=== PATIENT | male | born 1995 | race Caucasian/White ===

== ENCOUNTER 2021-03-11 15:56 | Emergency (ER) | payer OTHER ==
[2021-03-11 16:52] LABS: Absolute Lymphocytes (CBC) 2.2 K/uL (0.7-4.9); Basophils % 0.5 % (0-1.3); Hematocrit 44.1 % (39.6-49.0); RBC Red Blood Cell Count 4.77 M/uL (4.33-5.43)
[2021-03-11] MEDS ORDERED: NA CHLORIDE 0.9% 1,000 ML ONE (16:58)
[2021-03-11] MEDS ORDERED: MORPHINE 4 MG/ML SYR ONE (16:58)
[2021-03-11] MEDS ORDERED: ONDANSETRON 4 MG/2 ML VIAL ONE (16:58)
[2021-03-11 17:05] LABS: ALT/SGPT 18 U/L (12-78); AST/SGOT 17 U/L (15-37); Albumin 4.7 g/dL (3.4-5.0); Alkaline Phosphatase 63 U/L (45-117); BUN Blood Urea Nitrogen 10 mg/dL (7-18); Bicarbonate 29 mmol/L (21-32); Bilirubin Direct 0.2 mg/dL (0-0.2); Bilirubin Total 0.8 mg/dL (0.2-1.0); Glucose Level 86 mg/dL (74-106); Magnesium 1.9 mg/dL (1.8-2.4); NT PRO-BNP 14 pg/mL (<125); Potassium 3.8 mmol/L (3.5-5.1); Protein, Total 7.6 g/dL (6.4-8.2); Sodium Level 138 mmol/L (136-145); Troponin (Emerg Dept Use Only) < 0.02 ng/mL (0.0-0.045)
[2021-03-11 17:35] LABS: Protime INR 1.15
--- NOTE | 2021-03-11 17:46 | RAD REPORT ---
EXAM DESCRIPTION: Neelima Single View03/11/2021 5:35 pm CLINICAL HISTORY: Chest pain COMPARISON: none FINDINGS: The lungs appear clear of acute infiltrate. The heart is normal size IMPRESSION: No acute abnormalities displayed
[2021-03-11] MEDS ORDERED: KETOROLAC 30 MG/ML INJ ONE (19:15)
--- NOTE | 2021-03-11 19:39 | ER ---
Nurse's Notes [facility] Name: Kadeem Bragg Age: 25 yrs Sex: Male : 1995 Arrival Date: 03/11/2021 Time: 16:00 Bed 23 Private MD: Diagnosis: Chest pain, unspecified Presentation: 03/11 16:14 Chief complaint: Patient states: L chest sharp pain for 1 day. Pain increases with ll1 certain movements of L arm and deep breathing. No cough or fever. Coronavirus screen: Client denies travel out of the [place] in the last 14 days. At this time, the client does not indicate any symptoms associated with coronavirus-19. Ebola Screen: Patient denies exposure to infectious person. Patient denies travel to an Ebola-affected area in the 21 days before illness onset. Initial Sepsis Screen: Does the patient meet any 2 criteria? HR > 90 bpm. No. Patient's initial sepsis screen is negative. Does the patient have a suspected source of infection? No. Patient's initial sepsis screen is negative. Risk Assessment: Do you want to hurt yourself or someone else? Patient reports no desire to harm self or others. Onset of symptoms was March 11, 2021. 16:14 Method Of Arrival: Ambulatory ll1 16:14 Acuity: SINTIA 2 ll1 Historical: - Allergies: 16:16 No Known Allergies; ll1 - PMHx: 16:16 None; ll1 - PSHx: 16:16 lasik eye; ll1 - Immunization history:: Flu vaccine is not up to date. Client reports having NOT received the Covid vaccine. - Social history:: Smoking status: Reported history of juuling and/or vaping. Patient denies any tobacco usage or history of. Screenin:52 Abuse screen: Denies threats or abuse. Nutritional screening: No deficits noted. vg1 Tuberculosis screening: No symptoms or risk factors identified. Fall Risk No fall in past 12 months (0 pts). No secondary diagnosis (0 pts). IV access (20 points). Ambulatory Aid- None/Bed Rest/Nurse Assist (0 pts). Gait- Normal/Bed Rest/Wheelchair (0 pts) Mental Status- Oriented to own ability (0 pts). Total Hugo Fall Scale indicates No Risk (0-24 pts). Assessment: 16:50 General: Appears in no apparent distress. comfortable, Behavior is calm, cooperative. vg1 Pain: Complains of pain in chest Pain currently is 5 out of 10 on a pain scale. at worst was 8 out of 10 on a pain scale. Pain began this morning Alleviated by rest, Aggravated by increased activity. Neuro: Level of Consciousness is awake, alert, obeys commands, Oriented to person, place, time, situation. Cardiovascular: Patient's skin is warm and dry. Respiratory: Reports pain with respiration Airway is patent Respiratory effort is even, unlabored, Breath sounds are clear bilaterally. GI: Patient currently denies diarrhea, nausea, vomiting. : No signs and/or symptoms were reported regarding the genitourinary system. EENT: No signs and/or symptoms were reported regarding the EENT system. Derm: Skin is intact, is healthy with good turgor. Musculoskeletal: Circulation, motion, and sensation intact. 18:14 Reassessment: Patient appears in no apparent distress at this time. No changes from vg1 previously documented assessment. Patient and/or family updated on plan of care and expected duration. Pain level reassessed. Patient is alert, oriented x 3, equal unlabored respirations, skin warm/dry/pink. Pt states left sided chest pain is currently 3/10, stated 'hurts more when I take a deep breath or move my left arm up and down the pain is about 7/10'. Provider notified. 19:13 Reassessment: Patient appears in no apparent distress at this time. Patient and/or vg1 family updated on plan of care and expected duration. Pain level reassessed. Patient is alert, oriented x 3, equal unlabored respirations, skin warm/dry/pink. Vital Signs: 16:14 BP 142 / 80; Pulse 104; Resp 16; Temp 97.6; Pulse Ox 99% ; Weight 70.31 kg; Height 6 ll1 ft. 2 in. (187.96 cm); Pain 5/10; 16:52 BP 131 / 89; Pulse 88; Resp 16; Pulse Ox 100% on R/A; vg1 18:16 BP 118 / 70; Pulse 63; Resp 14; Pulse Ox 100% on R/A; vg1 19:00 BP 107 / 68; Pulse 68; Resp 20; Pulse Ox 100% on R/A; vg1 16:14 Body Mass Index 19.90 (70.31 kg, 187.96 cm) ll1 ED Course: 16:00 Patient arrived in ED. mr 16:14 Arm band placed on. ll1 16:16 Triage completed. ll1 16:23 Patient placed in an exam room, on a stretcher. EKG completed in triage. Results shown ll1 to MD. 16:25 Maurice Robles NP is PHCP. pm1 16:25 Jignesh Park MD is Attending Physician. pm1 16:32 Inserted saline lock: 20 gauge in left antecubital area, using aseptic technique. Blood mt collected. 16:38 Lesli Johnston, RN is Primary Nurse. vg1 16:52 Patient has correct armband on for positive identification. Bed in low position. Call vg1 light in reach. Side rails up X 1. Adult w/ patient. 17:43 XRAY Chest (1 view) In Process Unspecified. EDMS 19:59 No provider procedures requiring assistance completed. IV discontinued, intact, vg1 bleeding controlled, No redness/swelling at site. Pressure dressing applied. Administered Medications: 16:56 Drug: NS 0.9% 1000 ml Route: IV; Rate: 1000 ml; Site: left forearm; vg1 18:53 Follow up: IV Status: Completed infusion; IV Intake: 1000ml vg1 16:56 Drug: morphine 4 mg Route: IVP; Site: left forearm; vg1 18:53 Follow up: Response: No adverse reaction; Pain is unchanged, physician notified vg1 16:56 Drug: Zofran (Ondansetron) 4 mg Route: IVP; Site: left forearm; vg1 18:53 Follow up: Response: No adverse reaction vg1 19:12 Drug: TORadol (ketorolac) 30 mg Route: IVP; Site: left antecubital; vg1 20:00 Follow up: Response: No adverse reaction vg1 Intake: 18:53 IV: 1000ml; Total: 1000ml. vg1 Outcome: 19:39 Discharge ordered by . pm1 19:59 Discharged to home ambulatory. vg1 19:59 Condition: stable 19:59 Discharge instructions given to patient, Instructed on discharge instructions, follow up and referral plans. medication usage, Demonstrated understanding of instructions, follow-up care, medications, Prescriptions given X 2. 19:59 Patient left the ED. vg1 Signatures: Dispatcher [facility] Rehan Anna mr TravisMaurice, DIP TUBE ASSEMBLER MACHINE DIP TUBE ASSEMBLER MACHINE pm1 Dee Aldana mt, Victoria, RN RN vg1 Bulmaro Rodriguez RN RN ll1 Corrections: (The following items were deleted from the chart) 16:23 16:14 Acuity: SINTIA 3 ll1 ll1 16:56 16:55 NS 0.9% 1000 ml IV at 1000 ml in left wrist vg1 vg1
--- NOTE | 2021-03-11 19:40 | EDPHYS ---
Physician Documentation [facility] Name: Kadeem Bragg Age: 25 yrs Sex: Male : 1995 Arrival Date: 03/11/2021 Time: 16:00 Bed 23 Private MD: ED Physician Jignesh Park HPI: 03/11 16:39 This 25 yrs old Male presents to ER via Ambulatory with complaints of Chest pm1 pain radiates to shoulder pain. 16:39 The patient or guardian reports chest pain that is located primarily in the left pm1 breast. The pain radiates to the left arm. Associated signs and symptoms: The patient has no apparent associated signs or symptoms, Pertinent negatives: abdominal pain, cough, diaphoresis, dizziness, headache, nausea, palpitations, shortness of breath, syncope, vomiting. The chest pain is described as sharp. Duration: The patient or guardian reports a single episode, that is still ongoing, and worsening. Modifying factors: The symptoms are alleviated by nothing. the symptoms are aggravated by deep breath, palpation of area. Severity of pain: in the emergency department the pain is actually worse. The patient has not experienced similar symptoms in the past. The patient has not recently seen a physician. Onset chest pain at 0800 today. Historical: - Allergies: 16:16 No Known Allergies; ll1 - PMHx: 16:16 None; ll1 - PSHx: 16:16 lasik eye; ll1 - Immunization history:: Flu vaccine is not up to date. Client reports having NOT received the Covid vaccine. - Social history:: Smoking status: Reported history of juuling and/or vaping. Patient denies any tobacco usage or history of. ROS: 16:39 Constitutional: Negative for fever, chills, and weight loss. pm1 16:39 Respiratory: Negative for shortness of breath, cough, wheezing, and pleuritic chest pain, Abdomen/GI: Negative for abdominal pain, nausea, vomiting, diarrhea, and constipation, Back: Negative for injury and pain, MS/Extremity: Negative for injury and deformity, Skin: Negative for injury, rash, and discoloration, Neuro: Negative for headache, weakness, numbness, tingling, and seizure. 16:39 Cardiovascular: Positive for chest pain, Negative for edema, palpitations. Exam: 16:39 Constitutional: This is a well developed, well nourished patient who is awake, alert, pm1 and in no acute distress. Head/Face: Normocephalic, atraumatic. 16:39 Back: No spinal tenderness. No costovertebral tenderness. Full range of motion. Skin: Warm, dry with normal turgor. Normal color with no rashes, no lesions, and no evidence of cellulitis. MS/ Extremity: Pulses equal, no cyanosis. Neurovascular intact. Full, normal range of motion. 16:39 Chest/axilla: Inspection: normal, Palpation: tenderness, of the left breast, that totally reproduces the patient's complaints. 16:39 Cardiovascular: Exam negative for acute changes, Rate: normal, Rhythm: regular, Pulses: no pulse deficits are appreciated, Heart sounds: normal, Edema: is not appreciated. 16:39 Respiratory: Exam negative for acute changes, respiratory distress, shortness of breath, Breath sounds: are clear throughout. 16:39 Abdomen/GI: Exam negative for acute changes, Inspection: abdomen appears normal, Palpation: abdomen is soft and non-tender, in all quadrants. 16:39 Neuro: Exam negative for acute changes, Orientation: is normal, Mentation: is normal, Motor: is normal, moves all fours, Gait: is steady, at a normal pace, without difficulty. Vital Signs: 16:14 BP 142 / 80; Pulse 104; Resp 16; Temp 97.6; Pulse Ox 99% ; Weight 70.31 kg; Height 6 ll1 ft. 2 in. (187.96 cm); Pain 5/10; 16:52 BP 131 / 89; Pulse 88; Resp 16; Pulse Ox 100% on R/A; vg1 18:16 BP 118 / 70; Pulse 63; Resp 14; Pulse Ox 100% on R/A; vg1 19:00 BP 107 / 68; Pulse 68; Resp 20; Pulse Ox 100% on R/A; vg1 16:14 Body Mass Index 19.90 (70.31 kg, 187.96 cm) ll1 MDM: 16:25 Patient medically screened. pm1 17:35 Data reviewed: vital signs. pm1 19:26 ED course: Patient's pain resolved with toradol given. pm1 19:38 Data interpreted: Pulse oximetry: on room air is 100 %. Interpretation: normal. pm1 Counseling: I had a detailed discussion with the patient and/or guardian regarding: the historical points, exam findings, and any diagnostic results supporting the discharge/admit diagnosis, lab results, radiology results, the need for outpatient follow up, to return to the emergency department if symptoms worsen or persist or if there are any questions or concerns that arise at home. 03/11 16:33 Order name: Basic Metabolic Panel; Complete Time: 17:31 mt 03/11 16:33 Order name: CBC with Diff; Complete Time: 16:59 sd 03/11 16:33 Order name: LFT's; Complete Time: 17:31 sd 03/11 16:33 Order name: Magnesium; Complete Time: 17:31 sd 03/11 16:33 Order name: NT PRO-BNP; Complete Time: 17:31 sd 03/11 16:33 Order name: PT-INR; Complete Time: 17:35 sd 03/11 16:33 Order name: Troponin (emerg Dept Use Only); Complete Time: 17:31 sd 03/11 16:33 Order name: XRAY Chest (1 view); Complete Time: 17:50 sd 03/11 16:34 Order name: D-Dimer; Complete Time: 17:35 sd 03/11 18:30 Order name: Troponin (emerg Dept Use Only); Complete Time: 19:37 pm1 03/11 16:17 Order name: EKG; Complete Time: 16:18 [facility] 03/11 16:17 Order name: EKG - Nurse/Tech; Complete Time: 16:17 [facility] 03/11 16:33 Order name: Cardiac monitoring; Complete Time: 16:34 mt 03/11 16:33 Order name: IV Saline Lock; Complete Time: 16:34 sd 03/11 16:33 Order name: Labs collected and sent; Complete Time: 16:34 mt 03/11 16:33 Order name: O2 Per Protocol; Complete Time: 16:35 sd 03/11 16:33 Order name: O2 Sat Monitoring; Complete Time: 16:35 mt Administered Medications: 16:56 Drug: NS 0.9% 1000 ml Route: IV; Rate: 1000 ml; Site: left forearm; vg1 18:53 Follow up: IV Status: Completed infusion; IV Intake: 1000ml vg1 16:56 Drug: morphine 4 mg Route: IVP; Site: left forearm; vg1 18:53 Follow up: Response: No adverse reaction; Pain is unchanged, physician notified vg1 16:56 Drug: Zofran (Ondansetron) 4 mg Route: IVP; Site: left forearm; vg1 18:53 Follow up: Response: No adverse reaction vg1 19:12 Drug: TORadol (ketorolac) 30 mg Route: IVP; Site: left antecubital; vg1 20:00 Follow up: Response: No adverse reaction vg1 Disposition: 03/11/21 19:39 Discharged to Home. Impression: Chest pain, unspecified. - Condition is Stable. - Discharge Instructions: Nonspecific Chest Pain, Chest Wall Pain. - Prescriptions for Cyclobenzaprine 10 mg Oral Tablet - take 1 tablet by ORAL route every 8 hours As needed; 30 tablet. Diclofenac Sodium 75 mg Oral Tablet Sustained Release - take 1 tablet by ORAL route 2 times per day; 30 tablet. - Medication Reconciliation Form, Thank You Letter, Antibiotic Education, Prescription Opioid Use form. - Follow up: Emergency Department; When: As needed; Reason: Worsening of condition. Follow up: Private Physician; When: 2 - 3 days; Reason: Recheck today's complaints, Continuance of care, Re-evaluation by your physician. - Problem is new. - Symptoms have improved. Addendum: 03/14/2021 17:30 Co-signature as Attending Physician, Jignesh Park MD. p maría Signatures: Dispatcher [employer] EDJignesh Beltran MD MD pkl Maurice Robles, BUSINESS DEVELOPMENT INTERN BUSINESS DEVELOPMENT INTERN pm1 Dee Aldana mt, Victoria, RN RN vg1 Bulmaro Rodriguez RN RN ll1 Corrections: (The following items were deleted from the chart) 03/11 19:59 19:39 03/11/2021 19:39 Discharged to Home. Impression: Chest pain, unspecified. vg1 Condition is Stable. Forms are Medication Reconciliation Form, Thank You Letter, Antibiotic Education, Prescription Opioid Use. Follow up: Emergency Department; When: As needed; Reason: Worsening of condition. Follow up: Private Physician; When: 2 - 3 days; Reason: Recheck today's complaints, Continuance of care, Re-evaluation by your physician. Problem is new. Symptoms have improved. pm1
[2021-03-11 20:16] VITALS: TEMP 97.6
[2021-03-11 20:17] VITALS: O2SAT 100
[2021-03-11 20:20] VITALS: BP 107/68
--- NOTE | 2021-03-12 10:48 | EKG ---
Test Date: 2021-03-11 Test Time: 16:18:15 Journal Clerk: RAUL MEASUREMENT RESULTS: Intervals: Rate: 100 SD: 142 QRSD: 92 QT: 332 QTc: 428 [place]: P: 80 SD: 142 QRS: 91 T: 62 INTERPRETIVE STATEMENTS: Normal sinus rhythm Biatrial enlargement Rightward axis Pulmonary disease pattern ST elevation, consider early repolarization, pericarditis, or injury Abnormal ECG No previous ECG available for comparison Electronically Signed On 03-12-21 10:46:39 CDT by Jayant Momin
== END 2021-03-11 19:59 | disposition home or self-care (01) ==
LOC: ER 15:56
DX: R07.9 Chest pain, unspecified (principal)
CPT/HCPCS: 93005; 85025; 80048; 36415; 83735; 85610; 85379; 80076; 84484 ×2; 83880; 71045; 99284; J7030; J2405